=== PATIENT | male | born 1955 | race African-American/Black ===

== ENCOUNTER 2017-10-07 13:42 | Inpatient (IN) | payer OTHER ==
[2017-10-07 16:37] VITALS: BMI 30.4
--- NOTE | 2017-10-07 20:01 | HP ---
COWS - Scale Resting Pulse: 0= TN 80 or Below Sweatin= Chills/Flushing Restless Observation: 1= Difficult to Sit Still Pupil Size: 0= Normal to Room Light Bone or Joint Aches: 1= Mild Discomfort Runny Nose/ Eye Tearin= Constantly Teary/Runny GI Upset > 30mins: 1= Stomach Cramp Tremor Observation: 1= Tremor [place], Not Seen Yawning Observation: 2= >3x During Session Anxiety or Irritability: 2=Irritable/Anxious Goose Flesh Skin: 0=Smooth Skin COWS Score: 13 CIWA Score - CIWA Score Nausea/Vomitin-No Nausea/No Vomiting Muscle Tremors: 2 Anxiety: 2 Agitation: 1-Slight > Activity Paroxysmal Sweats: 1-Minimal Palms Moist Orientation: 0-Oriented Tacttile Disturbances: 2-Mild Itch/Numbness/Burn (left foot) Auditory Disturbances: 2-Mild Harshness/Frighten Visual Disturbances: 2-Mild Sensitivity Headache: 0-None Present CIWA-Ar Total Score: 12 Admission ROS S - HPI Chief Complaint: withdrawal symptoms History of Present Illness: 62 yo male heroin and nicotine dependence is here seeking detox. PMHX: HTN on medication, BPH, Hyperlipidemia, depression. Denies suicidal / homicidal ideation or suicide attempts. Last Detox January 2017 while in custodial. Longest period of sobriety 2006 -2011. Reports hx over dose. Exam Limitations: No Limitations - Ebola screening Have you traveled outside of the country in the last 21 days: No (N) Have you had contact with anyone from an Ebola affected area: No Have you been sick,other than usual withdrawal symptoms: No Do you have a fever: No - Review of Systems Constitutional: Chills, Changes in sleep, Unintentional Wgt. Loss (10 lbs in the past two weeks) EENT: reports: No Symptoms Reported Respiratory: reports: SOB with Exertion (after walking 3 city blocks or clmining steps) Cardiac: reports: No Symptoms Reported GI: reports: Poor Appetite, Poor Fluid Intake : reports: Frequency Musculoskeletal: reports: Joint Pain Integumentary: reports: No Symptoms Reported Neuro: reports: Weakness Endocrine: reports: No Symptoms Reported, Change in Weight Hematology: reports: No Symptoms Reported Psychiatric: reports: Orientated x3, Depressed Patient History - Patient Medical History Hx Anemia: No Hx Asthma: No Hx Chronic Obstructive Pulmonary Disease (COPD): No Hx Cancer: No Hx Cardiac Disorders: No Hx Congestive Heart Failure: No Hx Hypertension: Yes (Novasc 10 mg QD) Hx Hypercholesterolemia: Yes (not on medications ) Hx Pacemaker: No HX Cerebrovascular Accident: No Hx Seizures: No Hx Dementia: No Hx Diabetes: No Hx Gastrointestinal Disorders: No Hx Liver Disease: Yes (Hep C tx with Harbonia in 2015) Hx Genitourinary Disorders: Yes (BPH ) Hx Sexually Transmitted Disorders: Yes (Syphillis and Gonorrhea treated ) Hx Renal Disease (ESRD): No Hx Thyroid Disease: No Hx Human Immunodeficiency Virus (HIV): No (last tested 2014) Hx Hepatitis C: Yes (treated 2015) Hx Depression: Yes Hx Suicide Attempt: No Hx Bipolar Disorder: No Hx Schizophrenia: No - Patient Surgical History Past Surgical History: Yes Hx Neurologic Surgery: No Hx Cataract Extraction: No Hx Cardiac Surgery: No Hx Lung Surgery: No Hx Breast Surgery: No Hx Breast Biopsy: No Hx Abdominal Surgery: Yes (abdominal cyst removal 1981) Hx Appendectomy: No Hx Cholecystectomy: No Hx Genitourinary Surgery: No Hx Orthopedic Surgery: No Anesthesia Reaction: No - PPD History Previous Implant?: No Documented Results: Negative w/o proof Implanted On Prior [facility] Admission?: No PPD to be Administered?: Yes - Reproductive History Patient is a Female of Child Bearing Age (11 -55 yrs old): No - Smoking Cessation Smoking history: Current every day smoker Have you smoked in the past 12 months: Yes Aproximately how many cigarettes per day: 2 Hx Chewing Tobacco Use: No Initiated information on smoking cessation: Yes 'Breaking Loose' booklet given: 10/07/17 - Substance & Tx. History Hx Alcohol Use: Yes (1 pint vodka / day) Hx Substance Use: Yes Substance Use Type: Heroin Hx Substance Use Treatment: No - Substances Abused Alcohol Route: Oral Frequency: Daily Amount used: 1 pint of Vodka Age of first use: 15 Date of Last Use: 10/06/17 Heroin Route: Inhalation Frequency: Daily Amount used: 5 - 6 bags a day Age of first use: 20 Date of Last Use: 10/07/17 Family Disease History - Family Disease History Family Disease History: Diabetes: Mother (, [place]), Heart Disease: Mother, Other: Father (, in a fire ), Mother Admission Physical Exam [facility] - Vital Signs Vital Signs: Vital Signs - 24 hr 10/07/17 16:35 Temperature 96.8 F L Pulse Rate 70 Respiratory 21 Rate Blood Pressure 142/80 - Physical General Appearance: Yes: Disheveled, Irritable, Anxious HEENTM: Yes: EOMI, Hearing grossly Normal, Normal ENT Inspection, Normocephalic , Normal Voice, MEEK, Pharynx Normal, Tm's normal Respiratory: Yes: Chest Non-Tender, Lungs Clear, Normal Breath Sounds, No Respiratory Distress, No Accessory Muscle Use Neck: Yes: No masses,lesions,Nodules, Trachea in good position Breast: Yes: Breast Exam Deferred Cardiology: Yes: Regular Rhythm, Regular Rate Abdominal: Yes: Normal Bowel Sounds, Non Tender, Protuberent, Hernia (umbilical retractable) Genitourinary: Yes: Frequency Back: Yes: Normal Inspection Musculoskeletal: Yes: full range of Motion, Gait Steady, Pelvis Stable Extremities: Yes: Normal Capillary Refill, Normal Inspection, Normal Range of Motion, Non-Tender Neurological: Yes: software support analyst II-XII NML intact, Fully Oriented, Motor Strength 5/5, Depressed Affect Integumentary: Yes: Normal Color, Dry, Warm Lymphatic: Yes: Within Normal Limits - Diagnostic (1) Alcohol dependence with withdrawal Current Visit: Yes Status: Acute Qualifiers: Complication of substance-induced condition: uncomplicated Qualified Code(s ): F10.230 - Alcohol dependence with withdrawal, uncomplicated (2) Opioid dependence with withdrawal Current Visit: Yes Status: Acute (3) HTN (hypertension) Current Visit: Yes Status: Chronic Qualifiers: Hypertension type: essential hypertension Qualified Code(s): I10 - Essential (primary) hypertension (4) Hyperlipidemia Current Visit: Yes Status: Acute Qualifiers: Hyperlipidemia type: unspecified Qualified Code(s): E78.5 - Hyperlipidemia , unspecified (5) Depressed affect Current Visit: Yes Status: Acute (6) Difficulty sleeping Current Visit: Yes Status: Acute (7) Umbilical hernia Current Visit: Yes Status: Chronic Qualifiers: Obstruction and gangrene presence: without obstruction or gangrene Qualified Code(s): K42.9 - Umbilical hernia without obstruction or gangrene (8) Hx of hepatitis C Current Visit: Yes Status: Chronic (9) Back pain Current Visit: Yes Status: Acute Qualifiers: Back pain location: low back pain Back pain laterality: midline Sciatica presence: without sciatica (10) BPH (benign prostatic hyperplasia) Current Visit: Yes Status: Chronic Qualifiers: Lower urinary tract symptom presence: unspecified whether lower urinary tract symptoms present Qualified Code(s): N40.0 - Benign prostatic hyperplasia without lower urinary tract symptoms Cleared for Admission [facility] - Detox or Rehab [facility] Level of Care: Medically Managed Detox Regimen/Protocol: Methadone/Librium S Breath Alcohol Content Breath Alcohol Content: 0 Urine Drug Screen - Results Drug Screen Negative: No Urine Drug Screen Results: OPI-Opiates
[2017-10-07] MEDS ORDERED: IBUPROFEN 400 MG TABLET (FP) PO PRN (20:28)
[2017-10-07] MEDS ORDERED: MAG HYDROX/AL HYDROX/SIMETH 30 ML UNIT-DOSE CUP PO PRN (20:28)
[2017-10-07] MEDS ORDERED: MENTHOL/PHENOL 1 EACH UD MM PRN (20:28)
[2017-10-07] MEDS ORDERED: hydrOXYzine PAMOATE 50 MG CAPSULE (FP) PO PRN (20:28)
[2017-10-07] MEDS ORDERED: chlordiazePOXIDE HCL 25 MG CAPSULE PO ONE (20:28)
[2017-10-07] MEDS ORDERED: MAGNESIUM CITRATE 300 ML BOTTLE PO PRN (20:28)
[2017-10-07] MEDS ORDERED: METHADONE HCL 10 MG TABLET (FOR DETOX USE ONLY) PO ONE ×2 (20:28→23:00)
[2017-10-07] MEDS ORDERED: ACETAMINOPHEN 325 MG TABLET (FP) PO PRN (20:28)
[2017-10-07] MEDS ORDERED: LOPERAMIDE HCL 2 MG CAPSULE PO PRN (20:28)
[2017-10-07] MEDS ORDERED: P-EPHED 60MG/TRIPROLIDI 2.5MG TABLET PO PRN (20:28)
[2017-10-07] MEDS ORDERED: MAGNESIUM HYDROX 2400MG/30ML ORAL SUSPENSION 30 ML CUP PO PRN (20:28)
[2017-10-07] MEDS ORDERED: chlordiazePOXIDE HCL 25 MG CAPSULE PO PRN (20:28)
[2017-10-07] MEDS ORDERED: guaiFENesin/D-METHORPHAN HB 10 ML UNIT-DOSE CUPS PO PRN (20:28)
[2017-10-07] MEDS ORDERED: CYCLOBENZAPRINE HCL 10 MG TABLET (FP) PO PRN (20:32)
[2017-10-07] MEDS: chlordiazePOXIDE HCL 25 MG CAPSULE PO SCH (21:59)
[2017-10-07] MEDS: THIAMINE HCL 100 MG TABLET (FP) PO SCH (22:01)
[2017-10-08 00:29] LABS: URINE APPEARANCE CLEAR; URINE BILIRUBIN NEGATIVE (NEGATIVE); URINE BLOOD NEGATIVE (NEGATIVE); URINE COLOR YELLOW; URINE GLUCOSE (UA) NEGATIVE (NEGATIVE); URINE KETONE NEGATIVE (NEGATIVE); URINE LEUK ESTERASE NEGATIVE (NEGATIVE); URINE NITRITE NEGATIVE (NEGATIVE); URINE UROBILINOGEN NEGATIVE mg/dL (0.2-1.0)
[2017-10-08 00:43] LABS: URINE PROTEIN 1+ (NEGATIVE)
[2017-10-08 00:47] LABS: EPI CELLS RARE /HPF (FEW); URINE HYALINE CAST 4 /lpf; URINE MUCUS MODERATE
[2017-10-08] MEDS: chlordiazePOXIDE HCL 25 MG CAPSULE PO SCH ×4 (05:35→22:10)
[2017-10-08] MEDS ORDERED: METHADONE HCL 10 MG TABLET (FOR DETOX USE ONLY) PO SCH (10:00)
[2017-10-08] MEDS: NICOTINE 14 MG/24 HOURS TOPICAL PATCH TD SCH (10:09)
[2017-10-08] MEDS: PRENATAL VITAMINS W/ FOLIC ACID TABLET (FP) PO SCH (10:09)
[2017-10-08] MEDS: amLODIPine BESYLATE 10 MG TABLET (FP) PO SCH (10:09)
[2017-10-08] MEDS: TAMSULOSIN HCL 0.4 MG CAP.ER.24H (FP) PO SCH (10:10)
[2017-10-08 10:53] LABS: HEMATOCRIT 41.8 % (35.4-49); HEMOGLOBIN 13.9 GM/dL (11.7-16.9); MCH 31.1 pg (25.7-33.7); MCHC 33.3 g/dl (32.0-35.9); MEAN CELL VOLUME 93.4 fl (80-96); MEAN PLT VOLUME 8.9 fl (7.5-11.1); PLATELET COUNT 262 K/MM3 (134-434); RBC 4.47 M/mm3 (4.00-5.60); WHITE BLOOD COUNT 9.5 K/mm3 (4.0-10.0)
[2017-10-08 11:15] LABS: CHLORIDE 105 mmol/L (98-107); POTASSIUM 3.6 mmol/L (3.5-5.1); SODIUM 141 mmol/L (136-145)
[2017-10-08 11:28] LABS: ALBUMIN 3.5 g/dl (3.4-5.0); ALK PHOS 85 U/L (45-117); ANION GAP 5 (8-16); BILIRUBIN,TOTAL 0.3 mg/dL (0.2-1.0); BLOOD UREA NITROGEN 17 mg/dL (7-18); CO2 31 mmol/L (21-32); CREATININE 0.9 mg/dL (0.7-1.3); GLUCOSE,RANDOM 88 mg/dL (74-106); SGOT/AST 12 U/L (15-37); SGPT/ALT 21 U/L (12-78); TOT PROT 6.9 g/dl (6.4-8.2)
--- NOTE | 2017-10-08 11:57 | EKG ---
Test Reason : Blood Pressure : / mmHG Vent. Rate : 063 BPM Atrial Rate : 063 BPM P-R Int : 176 ms QRS Dur : 076 ms QT Int : 406 ms P-R-T Axes : 065 010 022 degrees QTc Int : 415 ms NORMAL SINUS RHYTHM NORMAL ECG NO PREVIOUS ECGS AVAILABLE Confirmed by MD FLAVIO, JANNETH (2013) on 10/08/2017 11:57:37 AM Referred By: Confirmed By:JANNETH MUNIZ MD
--- NOTE | 2017-10-08 13:19 | PN ---
S CIWA - CIWA Score Nausea/Vomitin Muscle Tremors: 3 Anxiety: 3 Agitation: 2 Paroxysmal Sweats: 1-Minimal Palms Moist Orientation: 0-Oriented Tacttile Disturbances: 1-Very Mild Itch/Numbness Auditory Disturbances: 1-Very Mild Visual Disturbances: 0-None Headache: 2-Mild CIWA-Ar Total Score: 16 BHS Progress Note (SOAP) Subjective: ALERT,IRRITABLE,ANXIOUS,INTERRUPTED SLEEP,TREMOR INSOMNIA Objective: 10/08/17 13:16 Vital Signs Temperature 96.8 F L 10/08/17 11:43 Pulse Rate 58 L 10/08/17 11:43 Respiratory Rate 18 10/08/17 11:43 Blood Pressure 151/85 10/08/17 11:43 O2 Sat by Pulse Oximetry (%) EKG NSR,NORMAL ECG Laboratory Last Values WBC 9.5 K/mm3 (4.0-10.0) 10/08/17 07:50 RBC 4.47 M/mm3 (4.00-5.60) 10/08/17 07:50 Hgb 13.9 GM/dL (11.7-16.9) 10/08/17 07:50 Hct 41.8 % (35.4-49) 10/08/17 07:50 MCV 93.4 fl (80-96) 10/08/17 07:50 MCH 31.1 pg (25.7-33.7) 10/08/17 07:50 MCHC 33.3 g/dl (32.0-35.9) 10/08/17 07:50 RDW 14.0 % (11.9-15.9) 10/08/17 07:50 Plt Count 262 K/MM3 (134-434) 10/08/17 07:50 MPV 8.9 fl (7.5-11.1) 10/08/17 07:50 Sodium 141 mmol/L (136-145) 10/08/17 07:50 Potassium 3.6 mmol/L (3.5-5.1) 10/08/17 07:50 Chloride 105 mmol/L (98-107) 10/08/17 07:50 Carbon Dioxide 31 mmol/L (21-32) 10/08/17 07:50 Anion Gap 5 (8-16) L 10/08/17 07:50 BUN 17 mg/dL (7-18) 10/08/17 07:50 Creatinine 0.9 mg/dL (0.7-1.3) 10/08/17 07:50 Creat Clearance w eGFR > 60 (>60) 10/08/17 07:50 Random Glucose 88 mg/dL (74-106) 10/08/17 07:50 Calcium 8.0 mg/dL (8.5-10.1) L 10/08/17 07:50 Total Bilirubin 0.3 mg/dL (0.2-1.0) 10/08/17 07:50 AST 12 U/L (15-37) L 10/08/17 07:50 ALT 21 U/L (12-78) 10/08/17 07:50 Alkaline Phosphatase 85 U/L (45-117) 10/08/17 07:50 Total Protein 6.9 g/dl (6.4-8.2) 10/08/17 07:50 Albumin 3.5 g/dl (3.4-5.0) 10/08/17 07:50 Urine Color Yellow 10/07/17 21:22 Urine Appearance Clear 10/07/17 21:22 Urine pH 5.0 (5.0-8.0) 10/07/17 21:22 Ur Specific [place] 1.023 (1.001-1.035) 10/07/17 21:22 Urine Protein 1+ (NEGATIVE) H 10/07/17 21:22 Urine Glucose (UA) Negative (NEGATIVE) 10/07/17 21:22 Urine Ketones Negative (NEGATIVE) 10/07/17 21:22 Urine Blood Negative (NEGATIVE) 10/07/17 21:22 Urine Nitrite Negative (NEGATIVE) 10/07/17 21:22 Urine Bilirubin Negative (NEGATIVE) 10/07/17 21:22 Urine Urobilinogen Negative mg/dL (0.2-1.0) 10/07/17 21:22 Ur Leukocyte Esterase Negative (NEGATIVE) 10/07/17 21:22 Urine WBC (Auto) 3 /hpf (3-5) 10/07/17 21:22 Urine RBC (Auto) 1 /hpf (0-3) 10/07/17 21:22 Ur Epithelial Cells Rare /HPF (FEW) 10/07/17 21:22 Hyaline Casts 4 /lpf 10/07/17 21:22 Urine Mucus Moderate 10/07/17 21:22 10/08/17 13:18 LABS PENDING Assessment: 10/08/17 13:18 WITHDRAWAL SYMPTOM Plan: CONTINUE DETOX
--- NOTE | 2017-10-08 16:45 | CONSULT ---
[facility] Psychiatric Consult - Data Date of interview: 10/08/17 Admission source: [facility] Identifying data: First admission to [facility] for this 62 y/o AA male seeking detox treatment on for alcohol and heroin dependence.Patient is single without children,homeless,unemployed and supported on Public Assistance. Substance Abuse History: Confirmed by patient in this session. Admits to occasional use of K2. Smoking history: Current every day smoker. Have you smoked in the past 12 months: Yes. Aproximately how many cigarettes per day: 2. Hx Chewing Tobacco Use: No. Initiated information on smoking cessation: Yes. 'Breaking Loose' booklet given: 10/07/17. - Substance & Tx. History. Hx Alcohol Use: Yes (1 pint vodka / day). Hx Substance Use: Yes. Substance Use Type: Heroin. Hx Substance Use Treatment: No. - Substances Abused. Alcohol. Route: Oral. Frequency: Daily. Amount used: 1 pint of Vodka. Age of first use: 15. Date of Last Use: 10/06/17. Heroin. Route: Inhalation. Frequency: Daily. Amount used: 5 - 6 bags a day. Age of first use: 20. Date of Last Use: 10/07/17 Medical History: Hypertension,hepatitis C,benign prostatic hyperplasia, dyslipidemia and a history of treatment for gonorrhea + syphilis. Psychiatric History: Patient denies. Physical/Sexual Abuse/Trauma History: Patient denies. Additional Comment: Urine Drug Screen Results: OPI-Opiates.Noted. Mental Status Exam - Mental Status Exam Alert and Oriented to: Place, Person Cognitive Function: Grossly Intact (falling asleep during interview but easily awakened) Patient Appearance: Well Groomed (obese) Mood: Withdrawn Affect: Mood Congruent Patient Behavior: Fatigued, Appropriate, Cooperative Speech Pattern: Clear Voice Loudness: Normal Thought Process: Goal Oriented Thought Disorder: Not Present Hallucinations: Denies Suicidal Ideation: Denies Homicidal Ideation: Denies Insight/Judgement: Poor Sleep: Well Appetite: Good Muscle strength/Tone: Normal Gait/Station: Normal (ambulates independently) Psychiatric Findings - Problem List ([place] 1, 2,3) (1) Alcohol dependence with withdrawal Current Visit: Yes Status: Acute Qualifiers: Complication of substance-induced condition: uncomplicated Qualified Code(s ): F10.230 - Alcohol dependence with withdrawal, uncomplicated (2) Opioid dependence with withdrawal Current Visit: Yes Status: Acute - Initial Treatment Plan Initial Treatment Plan: Psychoeducation.Sleep hygiene.Detoxification in progress.Observation.
[2017-10-08] MEDS: CYCLOBENZAPRINE HCL 5 MG TABLET PO PRN (22:10)
[2017-10-08] MEDS: THIAMINE HCL 100 MG TABLET (FP) PO SCH (22:10)
[2017-10-09] MEDS: chlordiazePOXIDE HCL 25 MG CAPSULE PO SCH ×3 (05:52→18:15)
[2017-10-09] MEDS: PRENATAL VITAMINS W/ FOLIC ACID TABLET (FP) PO SCH (10:09)
[2017-10-09] MEDS: amLODIPine BESYLATE 10 MG TABLET (FP) PO SCH (10:09)
[2017-10-09] MEDS: TAMSULOSIN HCL 0.4 MG CAP.ER.24H (FP) PO SCH (10:09)
[2017-10-09] MEDS: METHADONE HCL 5 MG TABLET (FOR DETOX USE ONLY) PO SCH (10:09)
[2017-10-09] MEDS: NICOTINE 14 MG/24 HOURS TOPICAL PATCH TD SCH (10:10)
--- NOTE | 2017-10-09 12:35 | PN ---
[facility] CIWA - CIWA Score Nausea/Vomitin-Mild Nausea/No Vomiting Muscle Tremors: 4-Moderate,w/Arms Extend Anxiety: 4-Mod. Anxious/Guarded Agitation: 4-Moderately Restless Paroxysmal Sweats: 1-Minimal Palms Moist Orientation: 0-Oriented Tacttile Disturbances: 0-None Auditory Disturbances: 0-None Visual Disturbances: 0-None Headache: 0-None Present CIWA-Ar Total Score: 14 BHS Progress Note (SOAP) Subjective: sweat tremor anxiety restlessness irritable Objective: 10/09/17 12:34 Vital Signs Temperature 97.5 F L 10/09/17 10:43 Pulse Rate 65 10/09/17 10:43 Respiratory Rate 18 10/09/17 10:43 Blood Pressure 135/79 10/09/17 10:43 O2 Sat by Pulse Oximetry (%) Laboratory Last Values WBC 9.5 K/mm3 (4.0-10.0) 10/08/17 07:50 RBC 4.47 M/mm3 (4.00-5.60) 10/08/17 07:50 Hgb 13.9 GM/dL (11.7-16.9) 10/08/17 07:50 Hct 41.8 % (35.4-49) 10/08/17 07:50 MCV 93.4 fl (80-96) 10/08/17 07:50 MCH 31.1 pg (25.7-33.7) 10/08/17 07:50 MCHC 33.3 g/dl (32.0-35.9) 10/08/17 07:50 RDW 14.0 % (11.9-15.9) 10/08/17 07:50 Plt Count 262 K/MM3 (134-434) 10/08/17 07:50 MPV 8.9 fl (7.5-11.1) 10/08/17 07:50 Sodium 141 mmol/L (136-145) 10/08/17 07:50 Potassium 3.6 mmol/L (3.5-5.1) 10/08/17 07:50 Chloride 105 mmol/L (98-107) 10/08/17 07:50 Carbon Dioxide 31 mmol/L (21-32) 10/08/17 07:50 Anion Gap 5 (8-16) L 10/08/17 07:50 BUN 17 mg/dL (7-18) 10/08/17 07:50 Creatinine 0.9 mg/dL (0.7-1.3) 10/08/17 07:50 Creat Clearance w eGFR > 60 (>60) 10/08/17 07:50 Random Glucose 88 mg/dL (74-106) 10/08/17 07:50 Calcium 8.0 mg/dL (8.5-10.1) L 10/08/17 07:50 Total Bilirubin 0.3 mg/dL (0.2-1.0) 10/08/17 07:50 AST 12 U/L (15-37) L 10/08/17 07:50 ALT 21 U/L (12-78) 10/08/17 07:50 Alkaline Phosphatase 85 U/L (45-117) 10/08/17 07:50 Total Protein 6.9 g/dl (6.4-8.2) 10/08/17 07:50 Albumin 3.5 g/dl (3.4-5.0) 10/08/17 07:50 Urine Color Yellow 10/07/17 21:22 Urine Appearance Clear 10/07/17 21:22 Urine pH 5.0 (5.0-8.0) 10/07/17 21:22 Ur Specific [place] 1.023 (1.001-1.035) 10/07/17 21:22 Urine Protein 1+ (NEGATIVE) H 10/07/17 21:22 Urine Glucose (UA) Negative (NEGATIVE) 10/07/17 21:22 Urine Ketones Negative (NEGATIVE) 10/07/17 21:22 Urine Blood Negative (NEGATIVE) 10/07/17 21:22 Urine Nitrite Negative (NEGATIVE) 10/07/17 21:22 Urine Bilirubin Negative (NEGATIVE) 10/07/17 21:22 Urine Urobilinogen Negative mg/dL (0.2-1.0) 10/07/17 21:22 Ur Leukocyte Esterase Negative (NEGATIVE) 10/07/17 21:22 Urine WBC (Auto) 3 /hpf (3-5) 10/07/17 21:22 Urine RBC (Auto) 1 /hpf (0-3) 10/07/17 21:22 Ur Epithelial Cells Rare /HPF (FEW) 10/07/17 21:22 Hyaline Casts 4 /lpf 10/07/17 21:22 Urine Mucus Moderate 10/07/17 21:22 HIV 1&2 Antibody Screen Negative 10/08/17 07:50 HIV P24 Antigen Negative 10/08/17 07:50 lab noted Assessment: 10/09/17 12:35 withdrawal sx Plan: continue detox
[2017-10-09] MEDS: chlordiazePOXIDE 5 MG CAPSULE PO SCH (22:10)
[2017-10-09] MEDS: CYCLOBENZAPRINE HCL 5 MG TABLET PO PRN (22:10)
[2017-10-09] MEDS: THIAMINE HCL 100 MG TABLET (FP) PO SCH (22:10)
[2017-10-10] MEDS: chlordiazePOXIDE 5 MG CAPSULE PO SCH ×3 (05:25→17:57)
[2017-10-10] MEDS: PRENATAL VITAMINS W/ FOLIC ACID TABLET (FP) PO SCH (10:34)
[2017-10-10] MEDS: amLODIPine BESYLATE 10 MG TABLET (FP) PO SCH (10:34)
[2017-10-10] MEDS: TAMSULOSIN HCL 0.4 MG CAP.ER.24H (FP) PO SCH (10:34)
[2017-10-10] MEDS: NICOTINE 14 MG/24 HOURS TOPICAL PATCH TD SCH (10:34)
[2017-10-10] MEDS: METHADONE HCL 5 MG TABLET (FOR DETOX USE ONLY) PO SCH (10:35)
--- NOTE | 2017-10-10 11:05 | PN ---
BHS Progress Note (SOAP) Subjective: general body aches sweat tremor restlessness anxiety gi distress stuffy nose sleeplessness Objective: 10/10/17 11:04 Vital Signs Temperature 97.5 F L 10/10/17 06:00 Pulse Rate 69 10/10/17 06:00 Respiratory Rate 18 10/10/17 06:00 Blood Pressure 136/74 10/10/17 06:00 O2 Sat by Pulse Oximetry (%) Laboratory Last Values WBC 9.5 K/mm3 (4.0-10.0) 10/08/17 07:50 RBC 4.47 M/mm3 (4.00-5.60) 10/08/17 07:50 Hgb 13.9 GM/dL (11.7-16.9) 10/08/17 07:50 Hct 41.8 % (35.4-49) 10/08/17 07:50 MCV 93.4 fl (80-96) 10/08/17 07:50 MCH 31.1 pg (25.7-33.7) 10/08/17 07:50 MCHC 33.3 g/dl (32.0-35.9) 10/08/17 07:50 RDW 14.0 % (11.9-15.9) 10/08/17 07:50 Plt Count 262 K/MM3 (134-434) 10/08/17 07:50 MPV 8.9 fl (7.5-11.1) 10/08/17 07:50 Sodium 141 mmol/L (136-145) 10/08/17 07:50 Potassium 3.6 mmol/L (3.5-5.1) 10/08/17 07:50 Chloride 105 mmol/L (98-107) 10/08/17 07:50 Carbon Dioxide 31 mmol/L (21-32) 10/08/17 07:50 Anion Gap 5 (8-16) L 10/08/17 07:50 BUN 17 mg/dL (7-18) 10/08/17 07:50 Creatinine 0.9 mg/dL (0.7-1.3) 10/08/17 07:50 Creat Clearance w eGFR > 60 (>60) 10/08/17 07:50 Random Glucose 88 mg/dL (74-106) 10/08/17 07:50 Calcium 8.0 mg/dL (8.5-10.1) L 10/08/17 07:50 Total Bilirubin 0.3 mg/dL (0.2-1.0) 10/08/17 07:50 AST 12 U/L (15-37) L 10/08/17 07:50 ALT 21 U/L (12-78) 10/08/17 07:50 Alkaline Phosphatase 85 U/L (45-117) 10/08/17 07:50 Total Protein 6.9 g/dl (6.4-8.2) 10/08/17 07:50 Albumin 3.5 g/dl (3.4-5.0) 10/08/17 07:50 Urine Color Yellow 10/07/17 21:22 Urine Appearance Clear 10/07/17 21:22 Urine pH 5.0 (5.0-8.0) 10/07/17 21:22 Ur Specific [place] 1.023 (1.001-1.035) 10/07/17 21:22 Urine Protein 1+ (NEGATIVE) H 10/07/17 21:22 Urine Glucose (UA) Negative (NEGATIVE) 10/07/17 21:22 Urine Ketones Negative (NEGATIVE) 10/07/17 21:22 Urine Blood Negative (NEGATIVE) 10/07/17 21:22 Urine Nitrite Negative (NEGATIVE) 10/07/17 21:22 Urine Bilirubin Negative (NEGATIVE) 10/07/17 21:22 Urine Urobilinogen Negative mg/dL (0.2-1.0) 10/07/17 21:22 Ur Leukocyte Esterase Negative (NEGATIVE) 10/07/17 21:22 Urine WBC (Auto) 3 /hpf (3-5) 10/07/17 21:22 Urine RBC (Auto) 1 /hpf (0-3) 10/07/17 21:22 Ur Epithelial Cells Rare /HPF (FEW) 10/07/17 21:22 Hyaline Casts 4 /lpf 10/07/17 21:22 Urine Mucus Moderate 10/07/17 21:22 RPR Titer Nonreactive (NONREACTIVE) 10/08/17 07:50 HIV 1&2 Antibody Screen Negative 10/08/17 07:50 HIV P24 Antigen Negative 10/08/17 07:50 lab noted Assessment: 10/10/17 11:05 withdrawal sx Plan: continue detox
[2017-10-10] MEDS: chlordiazePOXIDE HCL 10 MG CAPSULE PO SCH (22:33)
[2017-10-10] MEDS: THIAMINE HCL 100 MG TABLET (FP) PO SCH (22:33)
[2017-10-10] MEDS: CYCLOBENZAPRINE HCL 5 MG TABLET PO PRN (22:33)
[2017-10-10 22:55] VITALS: PULSE 75
[2017-10-11] MEDS: chlordiazePOXIDE HCL 10 MG CAPSULE PO SCH ×2 (05:54→10:49)
[2017-10-11 06:44] VITALS: BP 129/71; TEMP 98.1
[2017-10-11] MEDS ORDERED: METHADONE HCL 10 MG TABLET (FOR DETOX USE ONLY) PO SCH (10:00)
[2017-10-11] MEDS: PRENATAL VITAMINS W/ FOLIC ACID TABLET (FP) PO SCH (10:49)
[2017-10-11] MEDS: CYCLOBENZAPRINE HCL 5 MG TABLET PO PRN (10:49)
[2017-10-11] MEDS: TAMSULOSIN HCL 0.4 MG CAP.ER.24H (FP) PO SCH (10:49)
[2017-10-11] MEDS: amLODIPine BESYLATE 10 MG TABLET (FP) PO SCH (10:50)
[2017-10-11] MEDS: NICOTINE 14 MG/24 HOURS TOPICAL PATCH TD SCH (10:50)
--- NOTE | 2017-10-11 11:05 | DS ---
[facility] Detox Discharge Summary Admission Date: 10/07/17 Discharge Date: 10/11/17 - History Present History: Alcohol Dependence, Opioid Dependence - Physical Exam Results Vital Signs: Vital Signs Temperature 98.1 F 10/11/17 06:00 Pulse Rate 75 10/11/17 06:00 Respiratory Rate 18 10/11/17 06:00 Blood Pressure 129/71 10/11/17 06:00 O2 Sat by Pulse Oximetry (%) Pertinent Admission Physical Exam Findings: withdrawal sx Vital Signs Temperature 98.1 F 10/11/17 06:00 Pulse Rate 75 10/11/17 06:00 Respiratory Rate 18 10/11/17 06:00 Blood Pressure 129/71 10/11/17 06:00 O2 Sat by Pulse Oximetry (%) Laboratory Last Values WBC 9.5 K/mm3 (4.0-10.0) 10/08/17 07:50 RBC 4.47 M/mm3 (4.00-5.60) 10/08/17 07:50 Hgb 13.9 GM/dL (11.7-16.9) 10/08/17 07:50 Hct 41.8 % (35.4-49) 10/08/17 07:50 MCV 93.4 fl (80-96) 10/08/17 07:50 MCH 31.1 pg (25.7-33.7) 10/08/17 07:50 MCHC 33.3 g/dl (32.0-35.9) 10/08/17 07:50 RDW 14.0 % (11.9-15.9) 10/08/17 07:50 Plt Count 262 K/MM3 (134-434) 10/08/17 07:50 MPV 8.9 fl (7.5-11.1) 10/08/17 07:50 Sodium 141 mmol/L (136-145) 10/08/17 07:50 Potassium 3.6 mmol/L (3.5-5.1) 10/08/17 07:50 Chloride 105 mmol/L (98-107) 10/08/17 07:50 Carbon Dioxide 31 mmol/L (21-32) 10/08/17 07:50 Anion Gap 5 (8-16) L 10/08/17 07:50 BUN 17 mg/dL (7-18) 10/08/17 07:50 Creatinine 0.9 mg/dL (0.7-1.3) 10/08/17 07:50 Creat Clearance w eGFR > 60 (>60) 10/08/17 07:50 Random Glucose 88 mg/dL (74-106) 10/08/17 07:50 Calcium 8.0 mg/dL (8.5-10.1) L 10/08/17 07:50 Total Bilirubin 0.3 mg/dL (0.2-1.0) 10/08/17 07:50 AST 12 U/L (15-37) L 10/08/17 07:50 ALT 21 U/L (12-78) 10/08/17 07:50 Alkaline Phosphatase 85 U/L (45-117) 10/08/17 07:50 Total Protein 6.9 g/dl (6.4-8.2) 10/08/17 07:50 Albumin 3.5 g/dl (3.4-5.0) 10/08/17 07:50 Urine Color Yellow 10/07/17 21:22 Urine Appearance Clear 10/07/17 21:22 Urine pH 5.0 (5.0-8.0) 10/07/17 21:22 Ur Specific [place] 1.023 (1.001-1.035) 10/07/17 21:22 Urine Protein 1+ (NEGATIVE) H 10/07/17 21:22 Urine Glucose (UA) Negative (NEGATIVE) 10/07/17 21:22 Urine Ketones Negative (NEGATIVE) 10/07/17 21:22 Urine Blood Negative (NEGATIVE) 10/07/17 21:22 Urine Nitrite Negative (NEGATIVE) 10/07/17 21:22 Urine Bilirubin Negative (NEGATIVE) 10/07/17 21:22 Urine Urobilinogen Negative mg/dL (0.2-1.0) 10/07/17 21:22 Ur Leukocyte Esterase Negative (NEGATIVE) 10/07/17 21:22 Urine WBC (Auto) 3 /hpf (3-5) 10/07/17 21:22 Urine RBC (Auto) 1 /hpf (0-3) 10/07/17 21:22 Ur Epithelial Cells Rare /HPF (FEW) 10/07/17 21:22 Hyaline Casts 4 /lpf 10/07/17 21:22 Urine Mucus Moderate 10/07/17 21:22 RPR Titer Nonreactive (NONREACTIVE) 10/08/17 07:50 HIV 1&2 Antibody Screen Negative 10/08/17 07:50 HIV P24 Antigen Negative 10/08/17 07:50 lab noted - Treatment Hospital Course: Detox Protocol Followed, Detoxed Safely, Responded well, Discharged Condition Good, Rehab Referral Accepted Patient has Accepted a Rehab Referral to: [facility] - Medication Discharge Medications: Ambulatory Orders Amlodipine Besylate 10 mg PO DAILY #30 tablet 10/11/17 Tamsulosin HCl 0.4 mg PO DAILY #30 cap.er.24h 10/11/17 - Diagnosis (1) Alcohol dependence with withdrawal Current Visit: Yes Status: Acute Qualifiers: Complication of substance-induced condition: uncomplicated Qualified Code(s ): F10.230 - Alcohol dependence with withdrawal, uncomplicated (2) Opioid dependence with withdrawal Current Visit: Yes Status: Acute (3) BPH (benign prostatic hyperplasia) Current Visit: Yes Status: Chronic Qualifiers: Lower urinary tract symptom presence: unspecified whether lower urinary tract symptoms present Qualified Code(s): N40.0 - Benign prostatic hyperplasia without lower urinary tract symptoms (4) HTN (hypertension) Current Visit: Yes Status: Chronic Qualifiers: Hypertension type: essential hypertension Qualified Code(s): I10 - Essential (primary) hypertension - AMA Did Patient Leave Against Medical Advice: No
[2017-10-12] MEDS ORDERED: METHADONE HCL 5 MG TABLET (FOR DETOX USE ONLY) PO SCH (06:00)
== END 2017-10-11 13:34 | disposition home or self-care (01) | DRG 773 ==
LOC: YASAS 13:42 → Y6N 18:33
PROVIDERS: ADMIT Internal Medicine; ATTEND Internal Medicine
PROC: HZ2ZZZZ Detoxification Services for Substance Abuse Treatment (ICD-10-PCS; principal; 2017-10-07)
DX: F11.23 Opioid dependence with withdrawal (principal); F10.230 Alcohol dependence with withdrawal, uncomplicated; F32.9 Major depressive disorder, single episode, unspecified; I10 Essential (primary) hypertension; N40.0 Benign prostatic hyperplasia without lower urinary tract symptoms; M54.5 Low back pain; E78.5 Hyperlipidemia, unspecified; G47.00 Insomnia, unspecified; K42.9 Umbilical hernia without obstruction or gangrene; N18.2 Chronic kidney disease, stage 2 (mild); Z59.0 Homelessness
CPT/HCPCS: 36415; 80053; 81003; 81015; 85027; 86593; 87389; 93005; 93010